=== PATIENT | male | born 1960 | race Caucasian/White ===

== ENCOUNTER 2016-07-03 09:54 | Outpatient (CLI) | payer BC ==
[2016-07-03 10:43] LABS: CALCIUM, SERUM 8.8 mg/dL (8.5-10.1); CREATININE 1.1 mg/dL (0.6-1.3); POTASSIUM 4.5 mmol/L (3.5-5.1)
[2016-07-03] MEDS ORDERED: CT SWABBABLE VALVE TRANS SET 1 EA INFUS.SET MC ONE (10:56)
[2016-07-03] MEDS ORDERED: IV NS 0.9% 250 ML IV ONE (10:56)
[2016-07-03] MEDS ORDERED: IOHEXOL 50 ML IV ONE (10:57)
[2016-07-03] MEDS ORDERED: IOHEXOL-350 100 ML VIAL IV ONE (10:58)
[2016-07-03] MEDS ORDERED: NITROGLYCERIN 4.9 GM SPRAY ONE (11:46)
== END 2016-07-03 23:59 | disposition home or self-care (01) ==
LOC: CT 09:54
PROVIDERS: ATTEND Internal Medicine Interventional Cardiology
DX: Q25.49 Other congenital malformations of aorta (principal); I51.7 Cardiomegaly
CPT/HCPCS: 36415; 75574; 80048; 93005; J7050; Q9967 ×2